=== PATIENT | female | born 2000 | race African-American/Black ===

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

== ENCOUNTER 2020-03-27 11:17 | Emergency (ER) | payer BC ==
[~2020-03-27] VITALS: Ht 170.2 cm; Wt 74.0 kg
[~2020-03-27 11:17] MED LIST changes: +AMOXIL400 MG/52 PO
[2020-03-27 12:06] LABS: HEMATOCRIT 36.2 % (37.0-47.0); HEMOGLOBIN 11.6 g/dl (12.0-16.0); MEAN CORPUSCULAR HGB 26.8 pG CALC (26.0-32.0); NEUT# 2.87 thou/uL (2.00-7.15); RED BLOOD COUNT 4.33 mill/uL (4.20-5.60)
[2020-03-27 12:12] LABS: ALBUMIN 4.9 g/dL (3.2-5.0); ALKALINE PHOSPHATASE 72 u/l (38-126); ANION GAP 14 (6-22 (CALC)); BILIRUBIN, TOTAL 0.7 mg/dL (0.0-1.4); BUN 6 mg/dL (8-21); BUN/CREATININE RATIO 11 (12-20 (CALC)); CARBON DIOXIDE 24 mmol/l (22-30); CHLORIDE 103 mmol/l (95-108); CREATININE 0.6 mg/dL (0.5-1.0); GFR > 60 ML/MIN (>=60 (CALC)); GFR FOR AFR.AMER. > 60 ML/MIN (>=60 (CALC)); LIPASE 57 u/l (23-300); POTASSIUM 3.8 mmol/l (3.5-5.1); SGOT/AST 20 u/l (14-36); SODIUM 137 mmol/l (137-146); TOTAL PROTEIN 7.9 g/dL (6.3-8.2)
[2020-03-27 12:20] LABS: MEAN CELL VOLUME 83.6 fL CALC (80.0-100.0)
[2020-03-27 12:39] LABS: URINE BLOOD DIPSTICK NEGATIVE (NEGATIVE); URINE COLOR YELLOW; URINE GLUCOSE - DIPSTICK NEGATIVE (NEGATIVE); URINE KETONE TRACE mg/dL (NEGATIVE); URINE LEUK ESTERASE NEGATIVE (NEGATIVE); URINE NITRITE - DIPSTICK NEGATIVE (Negative); URINE PROTEIN - DIPSTICK 30 mg/dL (NEG-TRACE); URINE SPECIFIC GRAVITY >=1.030; URINE UROBILINOGEN - DIPSTICK 0.2 E.U./dL (0.2)
[2020-03-27 12:42] LABS: URINE BILIRUBIN - DIPSTICK SMALL (NEGATIVE)
[2020-03-27 12:43] LABS: URINE SQUAMOUS EPITHELIAL CELL FEW EPI/hpf (0-FEW)
[2020-03-27 13:03] VITALS: BP 120/66
== END 2020-03-27 13:08 | disposition home or self-care (01) | DRG 313 ==
LOC: ED 11:17
DX: R07.9 Chest pain, unspecified (principal); S69.91XA Unspecified injury of right wrist, hand and finger(s), initial encounter; D50.9 Iron deficiency anemia, unspecified; X58.XXXA Exposure to other specified factors, initial encounter

== ENCOUNTER 2020-12-18 14:32 | Emergency (ER) | payer MEDICAID ==
[2020-12-18 15:16] LABS: URINE BILIRUBIN - DIPSTICK NEGATIVE (NEGATIVE); URINE BLOOD DIPSTICK NEGATIVE (NEGATIVE); URINE COLOR YELLOW; URINE GLUCOSE - DIPSTICK NEGATIVE (NEGATIVE); URINE KETONE NEGATIVE (NEGATIVE); URINE LEUK ESTERASE NEGATIVE (NEGATIVE); URINE NITRITE - DIPSTICK NEGATIVE (Negative); URINE PH 6.5 (4.5-8.0); URINE PROTEIN - DIPSTICK NEGATIVE (NEG-TRACE); URINE SPECIFIC GRAVITY 1.015; URINE UROBILINOGEN - DIPSTICK 0.2 E.U./dL (0.2)
[2020-12-18 15:26] LABS: HEMATOCRIT 37.2 % (37.0-47.0); HEMOGLOBIN 12.2 g/dl (12.0-16.0); IMMATURE GRANULOCYTES 0.2 % (0.0-5.0); MEAN CELL VOLUME 81.8 fL CALC (80.0-100.0); MEAN CORPUSCULAR HGB 26.8 pG CALC (26.0-32.0); MEAN CORPUSCULAR HGB CONC 32.8 g/dL CAL (32.0-36.0); NEUT# 2.21 thou/uL (2.00-7.15); RED BLOOD COUNT 4.55 mill/uL (4.20-5.60); RED CELL DISTRI WIDTH 12.8 % (11.5-15.5)
[2020-12-18 15:50] LABS: ALKALINE PHOSPHATASE 60 u/l (38-126); ANION GAP 14 (6-22 (CALC)); BILIRUBIN, TOTAL 0.6 mg/dL (0.0-1.4); BUN 3 mg/dL (7-17); BUN/CREATININE RATIO 7 (12-20 (CALC)); CARBON DIOXIDE 21 mmol/l (22-30); CHLORIDE 103 mmol/l (95-108); CREATININE 0.5 mg/dL (0.5-1.0); GFR > 60 ML/MIN (>=60 (CALC)); GFR FOR AFR.AMER. > 60 ML/MIN (>=60 (CALC)); LIPASE 39 u/l (23-300); POTASSIUM 3.6 mmol/l (3.5-5.1); SGOT/AST 24 u/l (14-36); SODIUM 135 mmol/l (137-146); TOTAL PROTEIN 8.5 g/dL (6.3-8.2)
[2020-12-18 16:39] LABS: BETA-HCG, QUANT(RESULT NUMBER) 16670 mIU/mL
[2020-12-18] MEDS ORDERED: PRENATAL1 TA1 PO (19:49)
[2020-12-18 19:59] VITALS: BP 123/72
== END 2020-12-18 20:00 | disposition home or self-care (01) | DRG 833 ==
LOC: ED 14:32
DX: O26.891 Other specified pregnancy related conditions, first trimester (principal); R10.31 Right lower quadrant pain; Z3A.01 Less than 8 weeks gestation of pregnancy

== ENCOUNTER 2021-06-11 07:28 | Emergency (ER) | payer OTHER ==
[~2021-06-11] VITALS: Ht 165.1 cm; Wt 65.0 kg
[~2021-06-11 07:28] MED LIST changes: +PRENATAL1 TA1 PO
[2021-06-11 08:18] LABS: URINE BILIRUBIN - DIPSTICK NEGATIVE (NEGATIVE); URINE BLOOD DIPSTICK NEGATIVE (NEGATIVE); URINE COLOR YELLOW; URINE GLUCOSE - DIPSTICK NEGATIVE (NEGATIVE); URINE KETONE NEGATIVE (NEGATIVE); URINE LEUK ESTERASE NEGATIVE (NEGATIVE); URINE PROTEIN - DIPSTICK NEGATIVE (NEG-TRACE); URINE UROBILINOGEN - DIPSTICK 0.2 E.U./dL (0.2)
[2021-06-11 08:20] LABS: HEMATOCRIT 30.8 % (37.0-47.0); HEMOGLOBIN 10.2 g/dl (12.0-16.0); IMMATURE GRANULOCYTES 0.4 % (0.0-5.0); MEAN CORPUSCULAR HGB 28.5 pG CALC (26.0-32.0); MEAN CORPUSCULAR HGB CONC 33.1 g/dL CAL (32.0-36.0); NEUT# 10.23 thou/uL (2.00-7.15); RED BLOOD COUNT 3.58 mill/uL (4.20-5.60); RED CELL DISTRI WIDTH 12.9 % (11.5-15.5)
[2021-06-11 08:23] LABS: URINE NITRITE - DIPSTICK NEGATIVE (Negative)
[2021-06-11 08:45] LABS: ALKALINE PHOSPHATASE 90 u/l (38-126); ANION GAP 11 (6-22 (CALC)); BILIRUBIN, TOTAL 0.4 mg/dL (0.0-1.4); BUN 5 mg/dL (7-17); BUN/CREATININE RATIO 13 (12-20 (CALC)); CARBON DIOXIDE 22 mmol/l (22-30); CHLORIDE 105 mmol/l (95-108); CREATININE 0.4 mg/dL (0.5-1.0); GFR > 60 ML/MIN (>=60 (CALC)); GFR FOR AFR.AMER. > 60 ML/MIN (>=60 (CALC)); LIPASE 51 u/l (23-300); POTASSIUM 3.8 mmol/l (3.5-5.1); SODIUM 134 mmol/l (137-146)
[2021-06-11 08:46] LABS: ALBUMIN 3.9 g/dL (3.2-5.0); SGOT/AST 50 u/l (14-36)
[2021-06-11 08:54] VITALS: BP 136/66
== END 2021-06-11 08:58 | disposition home or self-care (01) ==
LOC: ED 07:28
PROVIDERS: Family Medicine
DX: O26.893 Other specified pregnancy related conditions, third trimester (principal); R10.31 Right lower quadrant pain; Z3A.30 30 weeks gestation of pregnancy

== ENCOUNTER 2021-07-10 09:08 | Emergency (ER) | payer OTHER ==
[~2021-07-10] VITALS: Ht 165.1 cm; Wt 85.0 kg
[2021-07-10] MEDS ORDERED: NAPROXEN500 MG PO (09:49)
[2021-07-10 10:05] VITALS: BP 148/72
== END 2021-07-10 10:05 | disposition home or self-care (01) ==
LOC: ED 09:08
DX: S63.501A Unspecified sprain of right wrist, initial encounter (principal); X50.3XXA Overexertion from repetitive movements, initial encounter; Y93.89 Activity, other specified; Y92.89 Other specified places as the place of occurrence of the external cause; Y99.0 Civilian activity done for income or pay

== ENCOUNTER 2023-05-09 07:04 | Emergency (ER) | payer SELFPAY ==
[~2023-05-09] VITALS: Ht 165.1 cm; Wt 63.6 kg
[~2023-05-09 07:04] MED LIST changes: +NAPROXEN500 MG PO
[2023-05-09] MEDS ORDERED: TAM75CAP PO (08:32)
[2023-05-09 09:14] VITALS: BP 145/89
== END 2023-05-09 08:50 | disposition home or self-care (01) | DRG 153 ==
LOC: ED 07:04
DX: J11.1 Influenza due to unidentified influenza virus with other respiratory manifestations (principal); Z20.822 Contact with and (suspected) exposure to COVID-19

== ENCOUNTER 2023-05-26 07:17 | Emergency (ER) | payer SELFPAY ==
[~2023-05-26] VITALS: Ht 165.1 cm; Wt 66.0 kg
[~2023-05-26 07:17] MED LIST changes: +TAM75CAP PO
[2023-05-26 10:39] VITALS: BP 122/78
== END 2023-05-26 10:40 | disposition home or self-care (01) | DRG 866 ==
LOC: ED 07:17
DX: B34.9 Viral infection, unspecified (principal); J45.909 Unspecified asthma, uncomplicated; Z20.822 Contact with and (suspected) exposure to COVID-19

== ENCOUNTER 2024-03-11 10:12 | Emergency (ER) | payer OTHER | END 2024-03-11 11:02 | disposition left against medical advice (07) | LOC: ED 10:12 → LWOBS 11:02 → ED 11:02 | DX: Z53.21 Procedure and treatment not carried out due to patient leaving prior to being seen by health care provider (principal) ==

== ENCOUNTER 2024-08-03 18:27 | Emergency (ER) | payer OTHER ==
[~2024-08-03] VITALS: Ht 165.1 cm; Wt 83.6 kg
[2024-08-03 18:33] VITALS: BP 130/79
[2024-08-03] MEDS ORDERED: KETOROLAC TROMETHAMINE 30 MG/ML SDV IM ONE (19:50)
[2024-08-03] MEDS ORDERED: OSELTAMIVIR PHOSPHATE 75 MG/TAB CAP PO ONE (19:50)
[2024-08-03] MEDS ORDERED: TAM75CAP PO (19:51)
[2024-08-03 20:07] VITALS: BP 130/79
== END 2024-08-03 20:07 | disposition home or self-care (01) ==
LOC: ED 18:27
DX: J11.1 Influenza due to unidentified influenza virus with other respiratory manifestations (principal)